=== PATIENT | female | born 1965 | race Caucasian/White ===

== ENCOUNTER 2024-02-01 14:31 | Emergency (ER) | payer OTHER, BC, SELFPAY ==
--- NOTE | ~2024-02-01 | XR_ITS ---
EXAM: XR ankle RT min 3V DATE: 02/01/2024 15:08 HISTORY: lat ankle pain/swelling, twisted on ledge of sidewalk/grass . COMPARISON: None available. FINDINGS: Normal mineralization. No lytic or blastic lesion. Mild degenerative change at the tibiota lar joint and talonavicular articulation. Mild Achilles and moderate plantar enthesopathy. Chronic ap pearing ossific fragment lateral to the joint space may represent an old avulsion. Suggestion of camacho sverse lucency through the tip of the lateral malleolus. Lateral soft tissue swelling. Slight lateral widening of the plafond. No erosion or periosteal change. Focal thickening/swelling over the dorsifl exor tendons in the lateral view. IMPRESSION: Nondisplaced transverse avulsion fracture at the tip of the lateral malleolus with overly ing soft tissue swelling. Lateral joint space widening may reflect lateral ligamentous injury. Focal soft tissue thickening over the tibialis anterior, as can be seen with partial tear. Reviewed, dictated and finalized at location K. IMPRESSION: Nondisplaced transverse avulsion fracture at the tip of the lateral malleolus with overlying soft tissue swelling. Lateral joint space widening ma y reflect lateral ligamentous injury. Focal soft tissue thickening over the tib ialis anterior, as can be seen with partial tear.
[2024-02-01 14:32] VITALS: BP 147/86; PULSE 87; RESP 16; TEMP 36.1; O2SAT 99
--- NOTE | 2024-02-01 15:34 | ED.LOWEXIN ---
HPI - Extremity Injury (Lower) General Chief Complaint: Extremity Injury, Lower Stated Complaint: right ankle injury Time Seen by Provider: 02/01/24 14:52 Source: patient Mode of arrival: wheelchair Limitations: no limitations History of Present Illness HPI Narrative: This is a 59 year old female that presents to the ER after an injury to the right ankle sustained this afternoon. Reports she twisted her ankle. Has had swelling and pain since. Reports decreased ROM. Denies numbness. Related Data Home Medications Medication Instructions Recorded Confirmed lidocaine 5 % topical patch 1 patch transdermal DAILY PRN Pain 11/11/23 11/11/23 losartan 25 mg tablet 25 mg PO DAILY 11/11/23 11/11/23 Allergies Allergy/AdvReac Type Severity Reaction Status Date / Time Sulfa (Sulfonamide Allergy Unknown unknown Verified 11/11/23 10:48 Antibiotics) doxycycline AdvReac Unknown Verified 11/11/23 10:48 morphine AdvReac Unknown Verified 11/11/23 10:48 Review of Systems Review of Systems: CONSTITUTIONAL: Denies fever MUSCULOSKELETAL: Reports joint pain, and myalgia. NEUROLOGIC: Denies numbness, or weakness. All systems reviewed & are unremarkable except as noted in HPI and below PMFSH Past Medical History Medical History Chronic sinusitis Sleep apnea Surgical History Surgical History H/O tubal ligation H/O: hysterectomy Family History Family History Father Lung cancer Social History Social History Smoking packs per day: 1 Smoking cigarettes per day: 20.0 Years smoked: 20 Smoking pack-years: 20.00 Smoking status: Current every day smoker Tobacco type: cigarettes Alcohol intake: current Drinks per week: 15 Substance use: current Substance use type: marijuana Other substance usage details: smokes and uses edibles Last use: 11/11/23 Lack of Transportation: No Lack of Food: Never True Current Housing: I Have Housing Concerned About Future Housing: No Difficulty Paying Gas/Electric Bills: No Difficulty Paying for Meds: No Currently Unemployed: No Education: High School Diploma/GED Difficulty w/ Childcare or Family Care: No Living arrangements: alone Exam Narrative: GENERAL: Well-appearing, well-nourished, and in no acute distress. HEAD: Normocephalic, atraumatic. EYES: EOMI. EXTREMITIES: Decreased active ROM in the right ankle due to pain. Mild to moderate edema about the right lateral malleoli, tender to palpation. Normal DP pulse. Normal sensation SKIN: Warm, dry, no rash. NEURO: No focal deficits. Alert and oriented x3. PSYCH: Normal mood and affect Course Course Emergency Course: Patient updated on her workup and agrees with plan of care Vital Signs Vital signs: Vital Signs Temperature 97 F L 02/01/24 14:32 Pulse Rate 87 02/01/24 14:32 Respiratory Rate 16 02/01/24 14:32 Blood Pressure 147/86 H 02/01/24 14:32 Pulse Oximetry 99 02/01/24 14:32 Temperature 97 F L 02/01/24 14:32 Pulse Rate 87 02/01/24 14:32 Respiratory Rate 16 02/01/24 14:32 Blood Pressure 147/86 H 02/01/24 14:32 Pulse Oximetry 99 02/01/24 14:32 Procedures Orthopedic Splinting/Casting Injury #1: Splinting/Casting Date: 02/01/24 Splinting/Casting Time: 16:25 Side: right Lower Extremity Injury Location: ankle Lower Extremity Immobilizer: posterior splint Splint: customized in ED OCL: posterior Pre-Procedure Neuro Vascular Exam: normal Post-Procedure Neuro Vascular Exam: normal Other Orthopedic Equipment: crutches MDM - Extremity Injury (Lower) MDM Narrative Medical decision making narrative: patient presents to the emergency department for rig
[2024-02-01] MEDS: IBUPROFEN 600 MG TABLET PO (15:42)
[2024-02-01 16:38] VITALS: BP 132/76; PULSE 79; RESP 15; O2SAT 98
== END 2024-02-01 16:39 | disposition home or self-care (01) ==
PROVIDERS: Emergency Provider Physician Assistant; PCP Nurse Practitioner Family
DX: S82.64XA Nondisplaced fracture of lateral malleolus of right fibula, initial encounter for closed fracture (principal); J32.9 Chronic sinusitis, unspecified; G47.30 Sleep apnea, unspecified; F17.210 Nicotine dependence, cigarettes, uncomplicated; X50.1XXA Overexertion from prolonged static or awkward postures, initial encounter
CPT/HCPCS: 29515; 73610; 99284; A9270

== ENCOUNTER 2025-05-01 13:55 | Emergency (ER) | payer BC, SELFPAY ==
--- NOTE | ~2025-05-01 | US_ITS ---
EXAM: ABDOMEN ULTRASOUND HISTORY: RUQ Pain COMPARISON: None FINDINGS: LIVER: The liver is increased in echogenicity and borderline increased in size measuring 19 cm in tutu gitudinal dimension. The portal vein is patent, demonstrating hepatopedal flow. GALLBLADDER: No stones are identified within the distended gallbladder, which is otherwise unremarkab le. No gallbladder wall thickening or pericholecystic fluid. BILE DUCTS: Common bile duct measures 5.4mm. PANCREAS: Limited evaluation of the pancreas secondary to overlying bowel gas RIGHT KIDNEY: 11.1 x 5.9 x 4.1 cm No hydronephrosis or bulky renal calculi. VASCULATURE : The visualized portion of the abdominal aorta is nonaneurysmal. The IVC is patent. IMPRESSION: Fatty infiltration of the borderline enlarged liver. No stones identified within the gallbladder. No right-sided renal calculi or hydronephrosis. Reviewed, dictated and finalized at location A.
[2025-05-01 14:00] VITALS: BP 103/76; PULSE 90; RESP 18; TEMP 36.6; O2SAT 97
[2025-05-01 15:56] LABS: Basophils Percent Auto 0.4 % (0.2-1.2); Eosinophils Absolute Auto 0.2 K/mm3 (0-0.3); Eosinophils Percent Auto 1.8 % (0-4.4); Hematocrit 45.8 % (37.0-47.0); Hemoglobin 15.7 g/dL (12.0-15.0); Immature Granulocyte Absolute 0.03 K/mm3 (0.00-0.031); Immature Granulocyte Percent A 0.3 % (0-0.5); Lymphocytes Absolute Auto 2.21 K/mm3 (0.9-3.2); Mean Corpuscular HGB Conc 34.3 g/dl (32-36); Mean Corpuscular Hemoglobin 30.6 pg (26-34); Mean Corpuscular Volume 89.3 fl (80-100); Mean Platelet Volume 10.9 fl (7.4-10.4); Monocytes Absolute Auto 0.6 K/mm3 (0.1-0.6); Monocytes Percent Auto 5.5 % (2.6-8.5); Neutrophils Absolute Auto 7.5 K/mm3 (1.3-6.7); Platelet Count Result 292 k/mm3 (150-375); Red Blood Count 5.13 M/mm3 (4.2-5.4); Red Cell Distribution Width 12.1 % (11.5-14.5); White Blood Count 10.5 K/mm3 (4.5-10.0)
--- NOTE | 2025-05-01 16:00 | PC.NURSE ---
Pt in radiology at this time.
[2025-05-01 16:06] LABS: Alanine Aminotransferase 67 U/L (6-35); Albumin Level 4.9 g/dL (3.5-5.1); Alkaline Phosphatase 104 U/L (38-126); Anion Gap 12 mmol/L (4-12); Aspartate Amino Transferase 41 U/L (14-36); Blood Urea Nitrogen 15 mg/dL (7-17); Calcium 10.3 mg/dL (8.4-10.2); Carbon Dioxide 24 mmol/L (22-30); Chloride 104 mmol/L (98-107); Estimated CRCL calculation 50 ml/min; Estimated Glomerular Filt Rate 42; Glucose 122 mg/dL (65-110); Lipase 111 U/L (23-300); Potassium 4.2 mmol/L (3.4-5.0); Sodium 140 mmol/L (137-145); Total Protein 8.3 g/dL (6.3-8.2)
[2025-05-01] MEDS: SODIUM CHLORIDE 0.9% IV 1,000 ML 999 ML IV CONT (16:42)
[2025-05-01] MEDS: HYDROcodone/acetaminophen (*CRX) 5-325 MG TABLET 1 TAB PO (17:07)
--- NOTE | 2025-05-01 17:33 | ED_ITS ---
HPI - General Adult General Chief complaint: Back Pain/Injury Stated complaint: back pain x 2 days Time Seen by Provider: 05/01/25 15:19 History of Present Illness HPI narrative: Patient is a 52-year-old female who presents ER with back pain/side pain on for 2 days. Moves into the right upper abdomen area. No nausea or vomiting. No fevers chills or sweats. No urinary frequency urgency or dysuria. It is not associated with eating or drinking the patient does have concerned she could have a kidney stone or gallstone though she has never been diagnosed with either. 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 No reports of trauma. Related Data Home Medications ?Medication ?Instructions ?Recorded ?Confirmed ?Last Taken ?Type lidocaine 5 % topical patch 1 patch transdermal DAILY PRN Pain 11/11/23 11/11/23 Unknown History losartan 25 mg tablet 25 mg PO DAILY 11/11/23 11/11/23 Unknown History Allergies Allergy/AdvReac Type Severity Reaction Status Date / Time Sulfa (Sulfonamide Allergy Unknown unknown Verified 11/11/23 10:48 Antibiotics) doxycycline AdvReac Unknown Verified 11/11/23 10:48 morphine AdvReac Unknown Verified 11/11/23 10:48 Review of Systems 2 Review of Systems: All systems reviewed & are unremarkable except as noted in HPI and below Constitutional: Constitutional: Reports no additional constitutional complaints ENT: Reports system reviewed and no additional complaints, except as documented Cardiovascular: Cardiovascular: Reports no additional cardiovascular complaints Respiratory: Respiratory: Reports no additional respiratory complaints Gastrointestinal: Gastrointestinal: Reports no additional gastrointestinal complaints [facility] Past Medical History Medical History Chronic sinusitis Sleep apnea Surgical History Surgical History H/O tubal ligation H/O: hysterectomy Family History Family History Father Lung cancer Social History Social History Smoking packs per day: 1 Smoking cigarettes per day: 20.0 Years smoked: 20 Smoking pack-years: 20.00 Smoking status: Current every day smoker Tobacco type: cigarettes Alcohol intake: current Drinks per week: 15 Substance use: current Substance use type: marijuana Other substance usage details: smokes and uses edibles Last use: 11/11/23 Lack of Transportation: No Lack of Food: Never True Current Housing: I Have Housing Concerned About Future Housing: No Difficulty Paying Gas/Electric Bills: No Difficulty Paying for Meds: No Currently Unemployed: No Education: High School Diploma/GED Difficulty w/ Childcare or Family Care: No Living arrangements: alone Exam 2 Narrative: GENERAL: Well-appearing, well-nourished, and in no acute distress. HEAD: Normocephalic, atraumatic. ENT: Mucous membranes moist. CHEST: Clear to auscultation. No respiratory distress. Tender palpation along the lateral chest wall on the right side mid axillary line lower aspect. HEART: Regular rate and rhythm. Normal peripheral pulses. ABDOMEN: Soft, mild right upper quadrant discomfort, nondistended. EXTREMITIES: Normal range of motion. No edema. SKIN: Warm, dry, no rash. NEURO: Alert and oriented x3. PSYCH: Normal mood and affect. Course Course Emergency Course: Patient resting comfortably. Informed of results. Patient unable to provide adequate urine sample and is comfortable being discharged. Vital Signs Vital signs: Vital Signs Temperature 97.8 F 05/01/25 14:00 Pulse Rate 90 05/01/25 14:00 Respiratory Rate 18 05/01/25 14:00 Blood Pressure 103/76 05/01/25 14:00 Pulse Oximetry 97 05/01/25 14:00 Oxygen Delivery Room Air 05/01/25 14:00 Temperature 97.8 F 05/01/25 14:00 Pulse Rate 90 05/01/25 14:00 Respiratory Rate 18 05/01/25 14:00 Blood Pressure 103/76 05/01/25 14:00 Pulse Oximetry 97 05/01/25 14:00 Oxygen Delivery Room Air 05/01/25 14:00 Medical Decision Making Vital Signs Vital Signs: Vital Signs Temperature 97.8 F 05/01/25 14:00 Pulse Rate 90 05/01/25 14:00 Respiratory Rate 18 05/01/25 14:00 Blood Pressure 103/76 05/01/25 14:00 Pulse Oximetry 97 05/01/25 14:00 Oxygen Delivery Room Air 05/01/25 14:00 Temperature 97.8 F 05/01/25 14:00 Pulse Rate 90 05/01/25 14:00 Respiratory Rate 18 05/01/25 14:00 Blood Pressure 103/76 05/01/25 14:00 Pulse Oximetry 97 05/01/25 14:00 Oxygen Delivery Room Air 05/01/25 14:00 Lab Data 05/01/25 15:46 05/01/25 15:46 Labs: Lab Results 05/01/25 05/01/25 Range/Units 15:46 16:52 WBC 10.5 H (4.5-10.0) K/mm3 RBC 5.13 (4.2-5.4) M/mm3 Hgb 15.7 H (12.0-15.0) g/dL Hct 45.8 (37.0-47.0) % MCV 89.3 (80-100) fl MCH 30.6 (26-34) pg MCHC 34.3 (32-36) g/dl RDW 12.1 (11.5-14.5) % Plt Count 292 (150-375) k/mm3 MPV 10.9 H (7.4-10.4) fl Immature Gran % (Auto) 0.3 (0-0.5) % Neut % (Auto) 71.0 (45.5-73.1) % Lymph % (Auto) 21.0 (18.3-44.2) % Menard % (Auto) 5.5 (2.6-8.5) % Eos % (Auto) 1.8 (0-4.4) % Baso % (Auto) 0.4 (0.2-1.2) % Lymph # (Auto) 2.21 (0.9-3.2) K/mm3 Menard # (Auto) 0.6 (0.1-0.6) K/mm3 Eos # (Auto) 0.2 (0-0.3) K/mm3 Baso # (Auto) 0.0 (0.0-0.1) K/mm3 Abs Immat Gran (auto) 0.03 (0.00-0.031) K/mm3 Absolute Neuts (auto) 7.5 H (1.3-6.7) K/mm3 Absolute Nucleated RBC 0.000 (0.0-0.012) K/mm3 Nucleated RBC % 0.0 (0.0-0.2) % Sodium 140 (137-145) mmol/L Potassium 4.2 (3.4-5.0) mmol/L Chloride 104 (98-107) mmol/L Carbon Dioxide 24 (22-30) mmol/L Anion Gap 12 (4-12) mmol/L BUN 15 (7-17) mg/dL Creatinine 1.30 H (0.7-1.0) mg/dL Estim Creat Clear Calc 50 ml/min Estimated GFR 42 L (59 - ) Glucose 122 H (65-110) mg/dL Calcium 10.3 H (8.4-10.2) mg/dL Total Bilirubin 1.0 (0.2-1.3) mg/dL AST 41 H (14-36) U/L ALT 67 H (6-35) U/L Alkaline Phosphatase 104 (38-126) U/L Total Protein 8.3 H (6.3-8.2) g/dL Albumin 4.9 (3.5-5.1) g/dL Lipase 111 (23-300) U/L Urine Color Pending Urine Appearance Pending Urine pH Pending Ur Specific [place] Pending Urine Protein Pending Urine Glucose (UA) Pending Urine Ketones Pending Ur Blood (Man) Pending Urine Nitrate Pending Urine Bilirubin Pending Urine Urobilinogen Pending Leukocyte Esterase Rfl Pending Imaging Data Radiologist's impression: ITS Impressions Upper Quadrant Ultrasound 05/01/25 17:01 IMPRESSION: Fatty infiltration of the borderline enlarged liver. No stones identified within the gallbladder. No right-sided renal calculi or hydronephrosis. Discharge Plan Discharge Clinical Impression: Chest wall pain Patient Disposition: Home Condition: Stable Instructions: Chest Wall Pain (ED) Additional Instructions: Return to the emergency department if you develop severe abdominal pain, severe nausea and vomiting to the point where you are unable to keep down fluids, if you develop chest pain or difficulty breathing, blood in your stool, dizziness or fainting, or if you develop any other new or concerning symptoms as these could be signs of more serious medical illness. Try to stay well hydrated. Patient Language: Amharic Prescriptions: New naproxen 375 mg tablet 375 mg PO BID Qty: 14 0RF No Action losartan 25 mg tablet 25 mg PO DAILY lidocaine 5 % adhesive patch,medicated 1 patch transdermal DAILY PRN (Reason: Pain) Follow-up/Referrals: Safia,Marsha Womack APRN [Primary Care Provider] - 1 Week
== END 2025-05-01 18:05 | disposition home or self-care (01) ==
PROVIDERS: Emergency Provider Emergency Medicine; PCP Nurse Practitioner Family
DX: R07.89 Other chest pain (principal); F17.210 Nicotine dependence, cigarettes, uncomplicated
CPT/HCPCS: 36415; 76705; 80053; 83690; 85025; 96360; 99284; A9270; J3010; J7030